=== PATIENT | male | born 1955 | race Caucasian/White ===

== ENCOUNTER 2020-02-16 10:34 | Inpatient (IN) | payer MEDICARE, SELFPAY ==
[2020-02-16] VITALS (63 sets, daily range): BP systolic 98–146; BP diastolic 61–103; PULSE 75–117; RESP 17–28; TEMP 37–37.1; O2SAT 90–100; BMI 23.6
--- NOTE | 2020-02-16 11:10 | XR_ITS ---
WS: [id number] XR chest 1V portable [id number] REASON FOR EXAM: dyspnea/cough FINDINGS: Small amount of left pleural effusion is noted. There is hyper aerated lungs with emphysema this changes and fibrosis. The heart is not enlarged. XR/XR chest 1V portable [id number] IMPRESSION: Chronic obstructive pulmonary disease with fibrosis. Left small amount of pleural effusion.
--- NOTE | 2020-02-16 11:16 | W.ED.SOB ---
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 He is altered right now and has a difficult time answering questions and sister did confirm that he is Do Not Recussitate. They have actually been looking at potential for lung transplant for him. At the moment I seen him he is moaning unable to understand most of the questions he is alert to place and person but not time and he cannot recall simple questions regarding his history beyond the immediate medical problem that brought him in today. On arrival in the emergency room patient was on nonrebreather at 15 L/min we took that off and changed him over to a nasal cannula he been running 100% on the nonrebreather change of the nasal cannula we had a target goal of 90 to 92% based on his history of chronic lung disease. He did comment to the nursing staff that he wanted to apparently did not want any aggressive interventions when I talked to him he did not reproduce that statement but his sister when she arrived stated they had previously discussed that and he did not want any aggressive measures such as intubation CPR or aggressive resuscitation protocols. MD elicited complaint: shortness of breath and cough Pertinent past history: COPD Onset (ago): hour(s) Context: anxiety Timing: constant Severity: severe Exacerbating factors: other (Off of his oxygen) Relieving factors: oxygen Known history of: COPD Associated symptoms: Reports chest congestion, chest pain, cough, dizziness, lightheadedness and sense of impending doom; Deny fever(s), hemoptysis, nausea, orthopnea or palpitations Treatment prior to arrival: oxygen Review of Systems Const: Denies: fever(s), chills, body aches, change in appetite, fatigue or malaise ENMT: Denies: throat pain, ear or mastoid pain, nasal discharge or nasal congestion Card: Reports: chest pain and lightheadedness; Denies: palpitations or orthopnea Resp: Reports: chest congestion; Denies: hemoptysis GI: Denies: nausea : Denies: flank pain, dysuria, urinary frequency or urinary urgency Skin/Breast: Denies: rash or pruritus Neuro: Reports: dizziness PFSH ED PFSH: Medical History End stage COPD Social History Smoking and tobacco status: former smoker Physical Exam Const: COMMON NORMALS: no acute distress GENERAL APPEARANCE: cooperative and comfortable ORIENTATION/CONSCIOUSNESS: Yes awake, Yes oriented to person, Yes oriented to place and Yes oriented to time HENMT: COMMON NORMALS: normocephalic, atraumatic, hearing grossly normal bilaterally, external ears normal, EAC's normal, TM's normal bilaterally, Normal nasal mucous membranes and turbinates present, moist oral mucous membranes and oropharynx normal HEAD & SCALP: normocephalic and atraumatic NOSE: Normal nasal mucous membranes and turbinates present EXTERNAL EAR: Yes external ears normal EXTERNAL AUDITORY CANAL: EAC's normal TYMPANIC MEMBRANE: TM's normal bilaterally Eye: COMMON NORMALS: Equal, round and reactive pupils present, EOMs intact bilaterally, conjunctivae normal and no scleral icterus CONJUNCTIVA: Yes conjunctivae normal PUPIL: Yes Equal, round and reactive pupils present Neck/C-Spine: COMMON NORMALS: full ROM, no lymphadenopathy, supple and no JVD Lymph: LYMPHATIC: no lymphadenopathy noted and no lymphedema noted Resp: EFFORT & INSPECTION: Yes tachypneic and Yes respiratory distress (Mild) AUSCULTATION: wheezes and diminished lung sounds Cardio: COMMON NORMALS: no JVD, regular rate, regular rhythm and No murmurs present (Cardio) RATE: regular rate RHYTHM: regular rhythm GI: COMMON NORMALS: Soft to palpation and No hepatosplenomegaly present AUSCULTATION: Yes normoactive bowel sounds PALPATION: Yes Soft to palpation, No Tenderness to palpation present (GI), No Guarding due to palpation present (GI) and Yes No hepatosplenomegaly present Extremity: COMMON NORMALS: normal to inspection, capillary refill normal, no clubbing, cyanosis or edema, no calf tenderness and no pedal edema Neuro: SENSORIUM/ORIENTATION: Yes oriented to person, Yes oriented to place and Yes oriented to time Skin: COMMON NORMALS: no rashes or lesions noted GENERAL SKIN EXAM: no rashes or lesions noted Course Vital Signs: Vital signs: Vital Signs Temperature 98.2 F 02/18/20 20:32 Pulse Rate 96 02/19/20 03:28 Respiratory Rate 18 02/19/20 11:57 Blood Pressure 137/84 02/18/20 20:32 Pulse Oximetry 98 02/19/20 03:28 MDM - SOB/Dyspnea MDM Narrative: Medical decision making narrative: Discussed with Dr. Chery patient has acute exacerbation of his COPD with hypercapnic respiratory failure code admit to the ICU he is a Do Not Recussitate status. Start on ceftriaxone and Zithromax Lab Data: Labs: Lab Results 02/16/20 02/16/20 02/16/20 Range/Units 11:05 11:30 11:30 WBC 15.3 H (4.0-10.0) 10^3/ uL RBC 4.81 (4.1-5.3) 10^6/u L Hgb 13.5 (11.7-16.6) g/dL Hct 47.9 (42.0-52.0) % MCV 99.6 H (80-94) fL MCH 28.1 (28.0-34.0) pg MCHC 28.2 L (30.0-36.0) g/dL RDW 13.4 (12.1-15.1) % Plt Count 413 H (130-400) 10^3/c mm MPV 9.7 (7.4-10.4) fL Neut % (Auto) 84.3 % Lymph % (Auto) 9.3 % [place] % (Auto) 5.6 % Eos % (Auto) 0.0 % Baso % (Auto) 0.3 % Neut # (Auto) 12.9 H (1.8-7.7) 10^3/u L Lymph # (Auto) 1.4 (0.8-4.8) 10^3/u L [place] # (Auto) 0.9 (0.2-0.9) 10^3/u L Eos # (Auto) 0.0 (0.0-0.8) 10^3/u L Baso # (Auto) 0.1 (0.0-0.1) 10^3/u L Nucleated RBC % (a uto) 0 % Nucleated RBCs # 0.0 /100WBC Specimen Type Arterial Sample Site Brachial, left ABG pH 7.32 L (7.35-7.45) ABG pCO2 95.7 H* (35-45) mmHg ABG pO2 69.1 L (80.0-100.0) mmH g ABG HCO3 48.9 H (22-26) mmol/L ABG O2 Saturation 94.6 ABG Base Excess 17.9 H (-2.0-2.0) mmol/ L Mario Test Pos A-a O2 Gradient 74.1 H (5-10) mmHg Hematocrit 40.1 L (42-52) % Hgb O2 Saturation 92.5 L (95-100) % Carboxyhemoglobin 1.3 (0.4-20.1) %THgb Methemoglobin 1.0 (0.4-1.5) % Total Hemoglobin 13.1 L (14-18) g/dL Sodium 143.0 (131-143) mmol/L Potassium 4.7 (3.5-5.0) mmol/L Glucose 188.0 H (70-115) mg/dL Ionized Calcium 1.4 (1.1-1.4) mmol/L O2 Delivery Device Nc O2 Liters/Min 4.0 % FiO2 36.0 % Spine Nurse ID cak Chloride (98-107) mmol/L Carbon Dioxide (22-29) mmol/L Anion Gap (5-19) BUN (8-23) mg/dL Creatinine (0.7-1.2) mg/dL GFR Calculation (90-130) mL/min Calculated Osmolal ity (285-295) mOsm/k g Lactate 2.1 (0.5-2.2) mmol/L Calcium (8.5-10.5) mg/dL Total Bilirubin (0.15-1.2) mg/dL AST (0-40) U/L ALT (0-41) U/L Alkaline Phosphata se (40-130) IU/L Creatine Kinase (39-308) U/L Total Protein (6.6-8.7) g/dL Albumin (3.5-5.2) g/dL Globulin (1.3-4.6) g/dL 02/16/20 02/16/20 Range/Units 11:35 11:53 WBC (4.0-10.0) 10^3/ uL RBC (4.1-5.3) 10^6/u L Hgb (11.7-16.6) g/dL Hct (42.0-52.0) % MCV (80-94) fL MCH (28.0-34.0) pg MCHC (30.0-36.0) g/dL RDW (12.1-15.1) % Plt Count (130-400) 10^3/c mm MPV (7.4-10.4) fL Neut % (Auto) % Lymph % (Auto) % [place] % (Auto) % Eos % (Auto) % Baso % (Auto) % Neut # (Auto) (1.8-7.7) 10^3/u L Lymph # (Auto) (0.8-4.8) 10^3/u L [place] # (Auto) (0.2-0.9) 10^3/u L Eos # (Auto) (0.0-0.8) 10^3/u L Baso # (Auto) (0.0-0.1) 10^3/u L Nucleated RBC % (a uto) % Nucleated RBCs # /100WBC Specimen Type Sample Site ABG pH (7.35-7.45) ABG pCO2 (35-45) mmHg ABG pO2 (80.0-100.0) mmH g ABG HCO3 (22-26) mmol/L ABG O2 Saturation ABG Base Excess (-2.0-2.0) mmol/ L Mario Test A-a O2 Gradient (5-10) mmHg Hematocrit (42-52) % Hgb O2 Saturation (95-100) % Carboxyhemoglobin (0.4-20.1) %THgb Methemoglobin (0.4-1.5) % Total Hemoglobin (14-18) g/dL Sodium 138 (131-143) mmol/L Potassium 4.7 (3.5-5.0) mmol/L Glucose 167 H (70-115) mg/dL Ionized Calcium (1.1-1.4) mmol/L O2 Delivery Device O2 Liters/Min % FiO2 % Spine Nurse ID Chloride 86 L (98-107) mmol/L Carbon Dioxide 41 H (22-29) mmol/L Anion Gap 15.7 (5-19) BUN 22 (8-23) mg/dL Creatinine 0.5 L (0.7-1.2) mg/dL GFR Calculation 166.4 H (90-130) mL/min Calculated Osmolal ity 286 (285-295) mOsm/k g Lactate (0.5-2.2) mmol/L Calcium 11.5 H (8.5-10.5) mg/dL Total Bilirubin 0.3 (0.15-1.2) mg/dL AST 20 (0-40) U/L ALT 25 (0-41) U/L Alkaline Phosphata se 88 (40-130) IU/L Creatine Kinase 26 L (39-308) U/L Total Protein 8.8 H (6.6-8.7) g/dL Albumin 3.9 (3.5-5.2) g/dL Globulin 4.9 H (1.3-4.6) g/dL Discharge Plan Discharge Patient Disposition: Admitted As Inpatient Admit Provider: Tatiana Chery Clinical Impression: Acute exacerbation of chronic obstructive pulmonary disease (COPD), Hypercapnic respiratory failure, End stage COPD Condition: Stable Discharge Orders: Discharge Order (Routine); Ordered 02/19/20 Ordered By: Tatiana Chery Referrals: [facility] [Outside] ([place] will make all follow up apoointments.) [facility] [Outside] (Hospice has been notified of discharge.) Discharge Diet: Usual diet Discharge Activity: Increase activity as tolerated Interventions: ED Discharge Assessment Last Done: 02/16/20 13:50 ED Charges Last Done: 02/16/20 13:50 Discharge Date/Time: 02/16/20 14:10 Coding Level of Care Code ED Dentures Lab Technician for Chg Fwd Exam Comprehensive
--- NOTE | 2020-02-16 11:22 | PC.NURSE ---
nurse present when ER physician spoke with pt's next of kin (sister) and sister spoke of pt's wishes to be considered AND.
[2020-02-16] MEDS: ipratropium-albuterol 3 mL Neb INHALATION ×3 (11:25→20:29)
--- NOTE | 2020-02-16 11:28 | PC.NURSE ---
pt placed on bipap ventilation
[2020-02-16 11:44] LABS: Basophils # 0.1 10^3/uL (0.0-0.1); Basophils % 0.3 %; Hematocrit 47.9 % (42.0-52.0); Hemoglobin 13.5 g/dL (11.7-16.6); Lymphocytes # 1.4 10^3/uL (0.8-4.8); Lymphocytes % 9.3 %; Mean Corpuscular HGB Conc 28.2 g/dL (30.0-36.0); Mean Corpuscular Hemoglobin 28.1 pg (28.0-34.0); Mean Corpuscular Volume 99.6 fL (80-94); Mean Platelet Volume 9.7 fL (7.4-10.4); Monocytes # 0.9 10^3/uL (0.2-0.9); Monocytes % 5.6 %; Neutrophils # 12.9 10^3/uL (1.8-7.7); Neutrophils % 84.3 %; Nucleated Red Blood Cells % 0 %; Platelet Count 413 10^3/cmm (130-400); Red Blood Count 4.81 10^6/uL (4.1-5.3); Red Cell Distribution Width 13.4 % (12.1-15.1); White Blood Count 15.3 10^3/uL (4.0-10.0)
--- NOTE | 2020-02-16 11:49 | PC.NURSE ---
portable xray at bedside
[2020-02-16 11:56] LABS: Alanine Aminotransferase 25 U/L (0-41); Albumin Level 3.9 g/dL (3.5-5.2); Alkaline Phosphatase 88 IU/L (40-130); Anion Gap 15.7 (5-19); Aspartate Amino Transferase 20 U/L (0-40); Blood Urea Nitrogen 22 mg/dL (8-23); Calcium 11.5 mg/dL (8.5-10.5); Chloride 86 mmol/L (98-107); Globulin 4.9 g/dL (1.3-4.6); Glomerular Filtration Rate 166.4 mL/min (90-130); Glucose 167 mg/dL (65-115); Osmolality Calculated 286 mOsm/kg (285-295); Potassium 4.7 mmol/L (3.5-5.1); Sodium 138 mmol/L (136-145); Total Bilirubin 0.3 mg/dL (0.15-1.2); Total Protein 8.8 g/dL (6.6-8.7)
[2020-02-16 11:57] LABS: Lactate (Lactic Acid level) 2.1 mmol/L (0.5-2.2)
[2020-02-16 12:09] LABS: Carbon Dioxide 41 mmol/L (22-29)
--- NOTE | 2020-02-16 12:43 | ECG_ITS ---
[facility] ED Test Date: 2020-02-16 Pat Name: Mani Tamez Department: Room: Gender: Male Supervisor Inspection Room: : 1955 Requested By: Emiliano Beaulieu Order Number: [id number] Fart[place] MD: Ana Landeros M.D. Measurements Intervals [place] Rate: 119 P: 88 MT: 178 QRS: 147 QRSD: 135 T: 120 QT: 323 QTc: 454 Interpretive Statements SINUS TACHYCARDIA INDETERMINATE AXIS.RIGHT BUNDLE BRANCH BLOCK [120+ ms QRS DURATION, UPRIGHT V1, 40+ ms S INI/aVL/V4/V5/V6] LEFT POSTERIOR FASCICULAR BLOCK [QRS AXIS > 109, INFERIOR Q] POSSIBLE ANTERIOR MYOCARDIAL INFARCTION [30 ms Q WAVE IN V3/V4, OR R < 0.2 mV IN V4], OF INDETERMINATE AGE MODERATE T-WAVE ABNORMALITY, CONSIDER LATERAL ISCHEMIA [-0.1+ mV T WAVE IN I/aVL/V5/V6] INTERPRETATION BASED ON A DEFAULT AGE OF 40 YEARS Compared to ECG 06/05/2019 08:11:49 Left posterior fascicular block now present Myocardial infarct finding now present T-wave abnormality now present Possible ischemia now present Electronically Signed On 02-16-2020 19:18:57 CDT by Ana Landeros M.D. [email or web address]/store/[id number]
[2020-02-16 13:13] LABS: ABG PCO2 95.7 mmHg (35-45); ABG PH Result 7.32 (7.35-7.45); Alveolar-Arterial Oxygen Gradi 74.1 mmHg (5-10); Arterial Blood Gas Hematocrit 40.1 % (42-52); Base Excess ABG 17.9 mmol/L (-2.0-2.0); Blood Gas Allen Test Pos; Blood Gas Sample Site Brachial, left; Blood Gas Sample Type Arterial; Carboxyhemoglobin 1.3 %THgb (0.4-20.1); HCO3 ABG 48.9 mmol/L (22-26); HGB O2 Sat 92.5 % (95-100); Ionized Calcium Level - ABG 1.4 mmol/L (1.1-1.4); Oxygen Device NC; Oxygen Saturation ABG 94.6; PO2 ABG 69.1 mmHg (80.0-100.0); Potassium Level - ABG 4.7 mmol/L (3.5-5.0); Total Hemoglobin 13.1 g/dL (14-18)
[2020-02-16] MEDS: HYDROcodone-acetaminophen 5-325 mg Tablet 1 TAB PO (13:30)
[2020-02-16] MEDS: sodium chlor 0.9% + KCl 20 mEq 20 MEQ/1,000 ML BAG 125 MEQ IV (13:31)
[2020-02-16] MEDS: D5-NS 0.45% + KCL 20 mEq 20 MEQ/1,000 ML BAG 100 MEQ IV (14:51)
[2020-02-16] MEDS: morphine 4 mg/mL SDV 1 mL 2 MG IVP ×3 (14:51→21:29)
--- NOTE | 2020-02-16 18:40 | PM.HP ---
Providers/Chief Complaint Admitting Physician: Tatiana Chery MD Chief Complaint: RESP DISTRESS History of Present Illness Mani Tamez is a 64 year old male with PMH advanced COPD , 02 dependent 5-6lpm at baseline who has been advised and declined lung transplant in the past presented via EMS with c/o increased somnolence since this morning. Patient lives with his sister, is home bound, limited mobility, this morning his sister noticed that at some point during the night his 02 had been off him. He was more somnolent this morning, not eating or drinking, was brought to ER and noted to have hypercapneic respiratory failure with pc02 of 90. There is no h/o fever, chest pain, cough. Patient has not left his room since june 2019 and only has contact with his sister with whom he lives. No known Covid exposure. Review of Systems General: Reports: ROS unobtainable due to medical condition Medications/Allergies Home Medications Medication Instructions Recorded Confirmed Last Taken Type albuterol sulfate 1 puff INHALATION QID PRN 02/16/20 02/16/20 Unknown History ipratropium-albuterol 3 ml INHALATION QID PRN 02/16/20 02/16/20 Unknown History tiotropium bromide [Spiriva with 1 cap INHALATION DAILY 02/16/20 02/16/20 02/15/20 History HandiHaler] tramadol 50 mg PO BID PRN 02/16/20 02/16/20 Unknown History Allergies Allergy/AdvReac Type Severity Reaction Status Date / Time naproxen [From Aleve] Allergy Unknown Unknown Verified 02/16/20 12:32 PFSH Acute PFSH: Medical History End stage COPD Social History Smoking and tobacco status: former smoker Vitals/I&O/Wt Last Vital Signs Temp 98.6 F 02/16/20 16:25 Pulse 85 02/16/20 18:10 Resp 21 H 02/16/20 18:10 BP 111/73 02/16/20 18:10 Pulse Ox 96 02/16/20 18:10 02/16/20 02/16/20 02/16/20 06:59 14:59 22:59 Intake Total 156.25 / 156.25 Balance 156.25 / 156.25 Weight last 48 hrs Weight 72.575 kg Physical Exam Narrative: EXAM NARRATIVE: GEN: Somnolent, opens eyes to calling commands, says yes or no to simple questions but not conversive. HEENT: On BIpap at this narciso e CVS: S1S2 N RS: CTA B/L, conducted breath sounds Abd: Soft, nt/nd , bs+ BUSINESS UNIT LEADER: hard to assess, but moves all extremities while in bed EXT: no LE edema or rashes Data : 02/16/20 11:30 02/16/20 11:35 Micro: Microbiology 02/16/20 11:35 Blood Culture - Preliminary Blood SPECIMEN COLLECTED 02/16/20 11:30 Blood Culture - Preliminary Blood SPECIMEN COLLECTED A&P Assessment and plan (1) End stage COPD: Status: Acute (2) Hypercapnic respiratory failure: Status: Acute (3) Acute exacerbation of chronic obstructive pulmonary disease (COPD): Status: Acute Additional A&P Information Admit to ICU Hypercapneic respiratory failure as a result of COPD exacerbation - Duonebs inhalation q4h constantino, pulmicort nebulization BID - solumedrol 30mg iv q6h - empiric abx Ceftriaxone and azithromycin given elevated WBC - Bipap continuous with attempts to wean - 02 titration to keep 02 sat 88-92% - Repeat ABG to assess response DVT ppx: lovenox DNR/DNI- discussed with sister Attestations Medical Necessity Statement*: needs >2midnight admission for hypercapneic respiratory failure Coding Level of Care Code 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
[2020-02-16] MEDS: cefTRIAXone 1,000 MG in sodium chloride 0.9% (plus) 50 ML 100 MG IV (19:30)
[2020-02-16] MEDS: enoxaparin 30 mg/0.3 mL Syringe SUBCUT (19:30)
[2020-02-16 20:06] LABS: Glucose Point of Care 185 mg/dL (70-110)
[2020-02-16] MEDS: azithromycin 500 MG in sodium chloride 0.9% 250 ML 250 MG IV (21:03)
[2020-02-16 23:08] LABS: ABG PH Result 7.35 (7.35-7.45); Arterial Blood Gas Hematocrit 34.7 % (42-52); Base Excess ABG 17.5 mmol/L (-2.0-2.0); Blood Gas Allen Test Pos; Blood Gas Sample Site Radial, right; Blood Gas Sample Type Arterial; Carboxyhemoglobin 1.1 %THgb (0.4-20.1); HCO3 ABG 46.9 mmol/L (22-26); HGB O2 Sat 89.8 % (95-100); Ionized Calcium Level - ABG 1.4 mmol/L (1.1-1.4); Methemoglobin 1.2 % (0.4-1.5); Oxygen Device NC; PO2 ABG 59.1 mmHg (80.0-100.0); Total Hemoglobin 11.3 g/dL (14-18)
[2020-02-17] VITALS (19 sets, daily range): BP systolic 107–150; BP diastolic 60–81; PULSE 69–97; RESP 15–29; TEMP 36.2–36.6; O2SAT 86–100
[2020-02-17] MEDS: morphine 4 mg/mL SDV 1 mL 2 MG IVP ×2 (00:24→01:42)
[2020-02-17] MEDS: D5-NS 0.45% + KCL 20 mEq 20 MEQ/1,000 ML BAG 100 MEQ IV (00:45)
[2020-02-17] MEDS: ipratropium-albuterol 3 mL Neb INHALATION ×2 (00:52→04:21)
--- NOTE | 2020-02-17 01:36 | ECG_ITS ---
[facility] Test Date: 2020-02-17 Pat Name: Mani Tamez Department: Room: [facility] Gender: Male Senior Pl Sql Developer: JOHAN : 1955 Requested By: George Del Angel Order Number: [id number] Reading MD: Abida Meier M.D. Measurements Intervals [place] Rate: 84 P: 89 CA: 184 QRS: 58 QRSD: 134 T: 82 QT: 360 QTc: 426 Interpretive Statements SINUS RHYTHM RIGHT BUNDLE BRANCH BLOCK ST ELEVATION, CONSIDER ANTERIOR INJURY ST ELEVATION, CONSIDER INFERIOR INJURY ACUTE ND Compared to ECG 02/16/2020 10:55:16 Right bundle-branch block now present ST (T wave) deviation now present Sinus tachycardia no longer present Left posterior fascicular block no longer present T-wave abnormality no longer present Electronically Signed On 02-17-2020 16:24:11 CDT by Abida Meier M.D. [id number]
[2020-02-17] MEDS: nitroglycerin 0.4 mg sublingual Tablet SUBLINGUAL (02:21)
[2020-02-17 02:36] LABS: Creatine Phosphokinase 26 U/L (39-308)
[2020-02-17 02:48] LABS: Troponin(5th) Baseline 21 ng/L (0-15)
--- NOTE | 2020-02-17 02:50 | PM.EVENT ---
Event Note Event Note: STEMI: Has been complaining of aches, and pain in his hemorrhoids tonight. Extra doses of morphine had to be given. Assessed EKG and trop attempted as at one point reported a generalized ache, but could not be collected given poor IV access. EKG shows findings of anterior and inferior STEMI. Discussed the LA which can lead to penitentiary disability or potentially life threatening w patient and his sister. Discussed that coronary reporfusion is the standard of care and recommended assessment and treatment by angiography since benefits of treatment usually outweigh the risks which we also discussed. They feel, however, that this would be incompatible with patient's overall goals of care with his chronic conditions including severe COPD and overall quality of life. They prefer instead symptomatic management only, without percutaneous or any medical treatment for STEMI, but making sure he is not in pain and not anxious and letting nature take it's course. At this time will add Roxanol. Discussed with patient and sister to let us know if there are any changes. Please revisit again regarding goals of care in the morning. Event Notes Attestations Time Spent in Patient Care: 16 - 35 minutes
--- NOTE | 2020-02-17 05:53 | PC.NURSE ---
Pt and sister have stated that they do not want blood draws, breathing treatments, or any other type of treatment. Pt sister stated the only thing we want is pain medicine .
--- NOTE | 2020-02-17 07:42 | PC.NURSE ---
PATIENT AND SISTER ASKED THAT HE BE TOTALLY ON COMFORT CARE. CURRENTLY HE IS ABLE TO TALK BUT HAS SOME DIFFICULTY UNDERSTANDING THE PROCESS. HIS VITALS ARE STRONG. HIS PAIN IS MINIMAL TO MODERATE BUT IT TOOK SEVERAL DOSES OF MORPHINE SL TO GET THERE. HE WOULD LIKE TO KEEP HIS IVS IF HE CAN GET PAIN AND SEDATION THROUGH THEM. HE WOULD LIKE TO EAT AND FOR NOW HE IS STRONG ENOUGH TO DO SO WITHOUT CHOKING. HE ALLOWED A BP AND I TOLD HIM I WOULD ONLY TAKE IT IF HE WAS AWAKE AND NOT ATTEMPT TO AWAKEN HIM TO GET ONE. HE MAY NEED A HOSPICE CONSULT IF HE DOES NOT DIMINISH IN THE COMING HOURS. ST ELEVATION IS EVIDENT ON THE EKG. CURRENTLY HIS URINAL CATCHES HIS INCONTINENCE BUT IF HE GOES HOME HIS SISTER WOULD APPRECIATE A CLAY .
--- NOTE | 2020-02-17 09:50 | USCV_ITS ---
Mani Tamez Age: 64 Gender: M : 1955 Exam Date: 02/17/2020 12:51 Ordering Phys: Tatiana Chery MD Technologist: Pablo Jain Exam Location: [facility] Indication: EF BP: 123 / 75 HR: 72 Rhythm: Sinus Technical Quality: Adequate MEASUREMENTS (Male / Female) Normal Values 2D ECHO LV Diastolic Diameter PLAX 4.4 cm 4.2 - 5.9 / 3.9 - 5.3 cm LV Systolic Diameter PLAX 2.6 cm IVS Diastolic Thickness 1.1 cm 0.6 - 1.0 / 0.6 - 0.9 cm IVS Systolic Thickness 1.4 cm LVPW Diastolic Thickness 1.1 cm 0.6 - 1.0 / 0.6 - 0.9 cm LVPW Systolic Thickness 1.1 cm LVOT Diameter 2.0 cm LV Ejection Fraction 2D Teich 73.4 % LV Ejection Fraction MOD 2C 77.2 % LV Ejection Fraction 2C AL 77.4 % LA Diameter 4.1 cm LA Width 3.7 cm LA Height 4.8 cm RA Width 3.9 cm RA Height 4.0 cm M-MODE LV Diastolic Diameter MM 5.9 cm 4.2 - 5.9 / 3.9 - 5.3 cm LV Systolic Diameter MM 3.6 cm LV Ejection Fraction MM Teich 68.5 % IVS Diastolic Thickness MM 1.1 cm 0.6 - 1.0 / 0.6 - 0.9 cm IVS Systolic Thickness MM 1.5 cm LVPW Diastolic Thickness MM 1.1 cm 0.6 - 1.0 / 0.6 - 0.9 cm LVPW Systolic Thickness MM 2.0 cm RV Diastolic Diameter MM 1.4 cm Aortic Annulus Diameter 3.5 cm LA Ao Ratio MM 1.2 MV E Point Septal Separation 1.1 cm FINDINGS Left Ventricle The study is limited to 2D only. The ventricle is not well seen but appears to be normal in size and function. No obvious wall motion disturbances. Estimated ejection fraction 60 to 65%. Right Ventricle Normal right ventricular size and systolic function. Right Atrium Mildly increased right atrial size. Left Atrium Mildly increased left atrial size. Mitral Valve Structurally normal mitral valve. Aortic Valve Structurally normal trileaflet aortic valve. Tricuspid Valve Structurally normal tricuspid valve. Pulmonic Valve Pulmonic valve not well visualized. Pericardium Normal pericardium without effusion. Aorta Normal ascending aorta dimension. CONCLUSIONS The study is limited to 2D only. The ventricle is not well seen but appears to be normal in size and function. No obvious wall motion disturbances. Estimated ejection fraction 60 to 65%. Mildly increased right atrial size. Mildly increased left atrial size. There are no prior echocardiogram studies to compare. Dr. Nomi Scott MD (Electronically Signed) Final Date: 17 February 2020 16:19 S
--- NOTE | 2020-02-17 09:54 | PM.PN ---
Subjective Subjective: Interval history: Doing much better this morning. He is awake, alert and oriented, no acute distress. c/o pain in hemorrhoids, otherwise denies pain anywhere else. Overnight notes noted. EKG with ST elevation changes. Baseline troponin 21. Currently on NC. Last ABG with pc02 high 80s, with normal pH, likely close to baseline. 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 Data : 02/16/20 11:30 02/16/20 11:35 Micro: Microbiology 02/16/20 11:35 Blood Culture - Preliminary Blood SPECIMEN COLLECTED 02/16/20 11:30 Blood Culture - Preliminary Blood SPECIMEN COLLECTED A&P Assessment and plan (1) Acute exacerbation of chronic obstructive pulmonary disease (COPD): Status: Acute (2) Hypercapnic respiratory failure: Status: Acute (3) End stage COPD: Status: Acute (4) STEMI (ST elevation myocardial infarction): Status: Acute Additional A&P Information # Hypercapneic respiratory failure as a result of COPD exacerbation - Duonebs inhalation q4h constantino, pulmicort nebulization BID - solumedrol 30mg iv q6h ---> change to po prednisone 40mg qd as difficult iv access - empiric abx azithromycin x 3 days - Bipap weaned off this morning, currently on 2lpm NC with 02 sat 96% - 02 titration to keep 02 sat 88-92% - alert and awake this morning # STEMI: Overnight patient had new changes on EKG. Baseline troponin 21. Denies any chest pain at this present time. ASA and statin added. No anticoagulation as patient wants to minimize injectables for comfort. CV echo ordered to estimate EF Discussed patient's overall poor prognosis with sister and patient. Patient defers decision making to his sister at this time. Had extensive discussion with patient sister patient's overall prognosis remains poor and he likely has limited life expectancy. She states that patient has been battling with chronic COPD for a long time, was advised lung transplant years ago however refused at that time. He is very limited in his mobility and has stated multiple times that he does not want any aggressive measures. In keeping with this hospice care and a more palliative approach seems to be the most appropriate way to proceed for the patient. Sister is agreeable for hospice, however she states she is unable to take care of him at home any more due to her own medical issues. She would like to keep him in the hospital for as long as possible, however I have explained that unfortunately we are not an inpatient hospice facility and are unable to do long-term hospice care. I offered to look into snf placement for the above reason, however she states that patient has adamantly refused this in the past. She would like to discuss with the patient, more before coming to a final decision about his eventual disposition. DVT ppx: SCDs only. Patient is requesting minimizing injectables. 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
[2020-02-17] MEDS: predniSONE 20 mg Tablet 40 MG PO (11:00)
[2020-02-17] MEDS: morphine 4 mg/mL SDV 1 mL 1 MG IVP ×2 (12:39→19:37)
[2020-02-17] MEDS: HYDROcodone-acetaminophen 5-325 mg Tablet 1 TAB PO (14:35)
[2020-02-17] MEDS: azithromycin 250 mg Tablet 500 MG PO (14:36)
[2020-02-18] VITALS (8 sets, daily range): BP systolic 137; BP diastolic 84; PULSE 100; RESP 16–22; TEMP 36.8; O2SAT 95–98
[2020-02-18] MEDS: morphine 4 mg/mL SDV 1 mL 1 MG IVP ×5 (01:22→20:48)
--- NOTE | 2020-02-18 04:29 | PC.NURSE ---
The patient states he wants absolutely nothing by mouth including medications or fluids. States he does not want water even at the bedside.The patient asked several times throughout the shift When am I going to ? The patient will moan out loudly when he is in pain. He will make it hard to communicate because the moaning is so loud. Refuses vital signs.
[2020-02-18] MEDS: azithromycin 250 mg Tablet 500 MG PO (08:07)
[2020-02-18] MEDS: pantoprazole DR 40 mg Tablet PO (08:07)
[2020-02-18] MEDS: predniSONE 20 mg Tablet 40 MG PO (08:07)
[2020-02-18] MEDS: aspirin 81 mg EC Tablet PO (08:08)
--- NOTE | 2020-02-18 11:47 | PM.PN ---
Subjective Subjective: Interval history: No acute distress, no new symptoms. 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 Data : 02/16/20 11:30 02/16/20 11:35 Micro: Microbiology 02/16/20 11:35 Blood Culture - Preliminary Blood NEGATIVE TO DATE 02/16/20 11:30 Blood Culture - Preliminary Blood NEGATIVE TO DATE A&P Assessment and plan (1) Acute exacerbation of chronic obstructive pulmonary disease (COPD): Status: Acute (2) Hypercapnic respiratory failure: Status: Acute (3) End stage COPD: Status: Acute (4) STEMI (ST elevation myocardial infarction): Status: Acute Additional A&P Information # Hypercapneic respiratory failure as a result of COPD exacerbation - Duonebs inhalation q4h constantino, pulmicort nebulization BID - po prednisone 40mg qd - empiric abx azithromycin x 3 days - Keep on NC for comfort # STEMI: Overnight patient had new changes on EKG. ASA and statin added. No anticoagulation as patient wants to minimize injectables for comfort. CV echo with normal LVEF and distolic function on limited study Discussed patient's overall poor prognosis with sister and patient. Had extensive discussion with patient sister patient's overall prognosis remains poor and he likely has limited life expectancy. She states that patient has been battling with chronic COPD for a long time, was advised lung transplant years ago however refused at that time. He is very limited in his mobility and has stated multiple times that he does not want any aggressive measures. In keeping with this hospice care and a more palliative approach seems to be the most appropriate way to proceed for the patient. he will transition to SNF with hospice. DVT ppx: None to allow comfort DNR/DNI- discussed with sister, palliative approach preferred, okay for po medications Attestations Medical Necessity Statement*: transition of care to SNF with hospice when they are able to accept Coding Level of Care Code Acute Family Preservation Officer for [facility] Fwd Diagnoses Acute exacerbation of chronic obstructive pulmonary disease (COPD) J44.1 Hypercapnic respiratory failure J96.92 End stage COPD J44.9 STEMI (ST elevation myocardial infarction) I21.3
--- NOTE | 2020-02-18 15:20 | PC.RESP ---
Pt refused to take treatments this [id number] not want any breathing medications.
--- NOTE | 2020-02-18 17:15 | PC.NURSE ---
Pt states he does not want his food tray. Pt sister would also like to be notified when pt is D/C.
[2020-02-19 00:20] VITALS: RESP 16
[2020-02-19] MEDS: morphine 4 mg/mL SDV 1 mL 1 MG IVP (00:20)
[2020-02-19 03:28] VITALS: PULSE 96; RESP 18; O2SAT 98
[2020-02-19 03:31] VITALS: RESP 16
[2020-02-19] MEDS: morphine 4 mg/mL SDV 1 mL 2 MG IVP ×2 (03:31→11:57)
[2020-02-19] MEDS: LORazepam 2 mg/mL INJ 1 mL 0.25 MG IVP ×2 (03:32→11:58)
[2020-02-19 08:00] VITALS: RESP 20
--- NOTE | 2020-02-19 10:10 | PC.SOCIAL ---
IMM Page 2 of IMM given to patient. Initialed, dated, and timed and placed in chart. Copy provided.
--- NOTE | 2020-02-19 10:31 | P.DS_ITS ---
Discharge Providers Date of Admission: 02/16/20 13:11 Date of Discharge: February 19, 2020 Attending Provider at Admission: Tatiana Chery MD Attending Provider at Discharge: Tatiana Chery MD Diagnoses at Discharge Discharge Diagnosis (1) Acute exacerbation of chronic obstructive pulmonary disease (COPD): Status: Acute (2) Hypercapnic respiratory failure: Status: Acute Qualifiers: Chronicity: acute on chronic Qualified Code(s): J96.22 - Acute and chronic respiratory failure with hypercapnia (3) End stage COPD: Status: Acute (4) STEMI (ST elevation myocardial infarction): Status: Acute Qualifiers: Involved coronary artery: unspecified coronary artery Qualified Code(s): I21.3 - ST elevation (STEMI) myocardial infarction of unspecified site Reason for Visit Reason for Visit: RESP DISTRESS Hospital Course Discharge Summary: Mani Tamez is a 64 year old male with PMH advanced COPD , 02 dependent 5-6lpm at baseline who has been advised and declined lung transplant in the past presented via EMS with c/o increased somnolence since the morning of 02/16/20. Patient lives with his sister, is home bound, limited mobility, that morning his sister noticed that at some point during the night his 02 had been off him. He was more somnolent the following morning, not eating or drinking, was brought to ER and noted to have hypercapneic respiratory failure with pc02 of 90. Overall history, labs and physical exam consistent with acute on chronic hypercapenic respiratory failure as a result of end stage COPD. He received continuous BiPAP on day of admission and was able to titrated off the next morning. Hospital course also notable for development of acute STEMI, for which he is being managed medically. No anticoagulation as patient wants to minimize injectables for comfort. Limited echo showed no obvious wall motion disturbances. Estimated ejection fraction 60 to 65%. Discussed patient's overall poor prognosis with sister and patient. Had extensive discussion with patient sister, patient's overall prognosis remains poor and he likely has limited life expectancy. She states that patient has been battling with chronic COPD for a long time, was advised lung transplant years ago however refused at that time. He is very limited in his mobility and has stated multiple times that he does not want any aggressive measures. In keeping with this hospice care and a more palliative approach seems to be the most appropriate way to proceed for the patient. He will transition to SNF with hospice. 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 Discharge Data Data Completed and Pending: Completed Studies During Hospitalization Category Date Time Status XR chest 1V shazia ble [id number] Stat Exams 02/16/20 11:10 Completed CV echo limited 9 [id number] Routine Ultrasound 02/17/20 09:50 Completed Pending at discharge Category Date Time Status Blood Culture Sta t Lab 02/16/20 11:35 Results Vitals: Last Vital Signs Temp 98.2 F 02/18/20 20:32 Pulse 96 02/19/20 03:28 Resp 20 H 02/19/20 08:00 BP 137/84 02/18/20 20:32 Pulse Ox 98 02/19/20 03:28 Discharge Plan Discharge Patient Disposition: Hospice - Medical Facility Condition: Stable Prescriptions: New hydrocodone-acetaminophen 5-325 mg Tablet 1 tab PO Q4H PRN (Reason: Moderate Pain) 30 Days Qty: 30 RF: 0 Ativan 0.5 mg tablet 0.25 mg PO Q4H PRN (Reason: anxiety) Qty: 30 RF: 1 acetaminophen 325 mg Tablet 650 mg PO Q6H PRN (Reason: Mild/Mod Pain Or Temp >/= 101) Qty: 0 RF: 0 aspirin 81 mg Tablet,Delayed Release (Dr/Ec) 81 mg PO DAILY 30 Days Qty: 30 RF: 0 pantoprazole 40 mg Tablet,Delayed Release (Dr/Ec) 40 mg PO DAILY 30 Days Qty: 30 RF: 0 nitroglycerin [Nitrostat] 0.4 mg Tablet, Sublingual 0.4 mg sublingual Q5M PRN (Reason: Chest Pain) 30 Days Qty: 30 RF: 0 atorvastatin 40 mg Tablet 40 mg PO BEDTIME 30 Days Qty: 30 RF: 0 Continued tramadol 50 mg Tablet 50 mg PO BID PRN (Reason: Pain) RF: 0 albuterol sulfate 90 mcg/actuation Hfa Aerosol Inhaler 1 puff INHALATION QID PRN (Reason: Shortness Of Breath) RF: 0 Spiriva with HandiHaler 18 mcg Capsule, W/Inhalation Device 1 cap INHALATION DAILY RF: 0 ipratropium-albuterol 0.5 mg-3 mg(2.5 mg base)/3 mL Solution For Nebulization 3 ml INHALATION QID PRN (Reason: Shortness Of Breath) RF: 0 Discharge Orders: Discharge Order (Routine); Ordered 02/19/20 Ordered By: Tatiana Chery Referrals: [facility] [Outside] [facility] [Outside] Discharge Diet: Usual diet Discharge Activity: Increase activity as tolerated Discharge Attestations Time Spent in Discharge Care*: greater than 30 min Quality Metrics Clinical Quality Measures During this hospital stay, did patient experience: AMI Clinical Trial Participant: No Contraindication to aspirin (AMI): Aspirin given Contraindication to statin: Statin prescribed Coding Level of Care Code Acute Packing Shed Supervisor for g Fwd Diagnoses Acute exacerbation of chronic obstructive pulmonary disease (COPD) J44.1 Hypercapnic respiratory failure J96.22 Chronicity: acute on chronic End stage COPD J44.9 STEMI (ST elevation myocardial infarction) I21.3 Involved coronary artery: unspecified coronary artery
--- NOTE | 2020-02-19 11:11 | PC.CHAP ---
Pastoral Care Encounter/Spiritual Assessment Type of Contact [] Declined plant technician/control room operator visit [] Patient/Family/Request visit [] Outpatient visit [] Follow-up visit [] Physician referral [] Code/Alert [] Routine visit [X] Staff referral [] Actively dying [] Patient sleeping [] Family support [] [] Out of room [X] Palliative care [] [] Receiving care in room [] Pre-surgical visit [] Trauma [] Long length of stay [] ICU visit [] Other: Relational/Emotional Strength [] Patient feels connected with others/family/visitors/staff [] Distress [] Loneliness/isolation [] Abandonment Spirituality of Patient [] Person of Izzy [] Attends Scientology of their Izzy [] Believes in Prayer [] Reads Bible or Hinduism materials [] There are Spiritual issues to be addressed Supervisor Diagnostic Interventions [X] Prayer [] Active listening [] Non-anxious presence [] Spiritual/emotional support [] Crisis/trauma care [] Spiritual counseling [] Bereavement support [] Provided bereavement packet [] Provided Bible/devotional materials [] Provided toy/stuffed animal, coloring book to patient or family member [] Provided Communion [] Anointing/Rural Retreat [] Salvation [] Completed spiritual assessment [X] Other: held his hand (I gloved up) Impact on Illness or Injury [] Angry [] Fearful [] Anxious [] Often cries [] Exhaustion [] Unable to work [] Unable to attend restorationism [] Unable to walk/stand [] Unable to read [] Unable to drive [] Unable to eat/drink [] Unable to sleep [] Unable to be with family [] Patient intubated [] Other: Summary: Nursing staff asked that i visit with this pt not realizing that he could not speak. When i realized that he could not speak (he was vocalizing but no words), i assured him that he need not, gloved up, pulled up a chair, and held his hand in mine while i prayed. He calmed down. He is on comfort care, so I spoke with the nurse before I left the floor to let them know that we are available 24/03--the facsimile operator has our numbers--and to learn if family was going to be allowed to see him. Nurse believed that his daughter was going to be allowed in to be with him. I will check on him again, tomorrow. Time spent with patient: 5 -10 mins
[2020-02-19 11:14] VITALS: RESP 20
[2020-02-19 11:57] VITALS: RESP 18
--- NOTE | 2020-02-21 12:48 | PC.RESP ---
PULMONARY REHAB INFORMATION SENT TO PATIENT.
== END 2020-02-19 12:30 | disposition hospice, inpatient (51) | DRG 189 ==
LOC: ER 12:15 → ICU 13:35 → MEDSURG 02-17 14:04
PROVIDERS: Family Medicine; Internal Medicine; Admitting Provider Student in an Organized Health Care Education/Training Program; Visit Provider Student in an Organized Health Care Education/Training Program
DX: J96.22 Acute and chronic respiratory failure with hypercapnia (principal); I21.3 ST elevation (STEMI) myocardial infarction of unspecified site; J44.1 Chronic obstructive pulmonary disease with (acute) exacerbation; Z99.81 Dependence on supplemental oxygen; Z87.891 Personal history of nicotine dependence; Z66 Do not resuscitate; Z79.51 Long term (current) use of inhaled steroids
CPT/HCPCS: 12345; 36415; 36416; 36600; 71045; 80051; 80053; 82550; 82810; 82962; 83605; 83986; 84484; 85025; 87040; 93005; 93308; 94640; 94660; 96375; 99283; J0456; J0696; J1650; J2060; J2270; J2920; J2930; J7050; J7512; Q0144